=== PATIENT | male | born 1995 | race African-American/Black ===

== ENCOUNTER 2019-12-23 17:46 | Emergency (ER) | payer MEDICAID ==
[~2019-12-23] VITALS: Ht 165.1 cm; Wt 85.0 kg
[2019-12-23 22:03] VITALS: BP 145/98
== END 2019-12-23 22:04 | disposition home or self-care (01) ==
LOC: ER 17:46
DX: M79.671 Pain in right foot (principal)
CPT/HCPCS: 73630; 99283

== ENCOUNTER → 2020-01-05 | Outpatient (CLI) | payer MEDICAID, OTHER | END | disposition home or self-care (01) | LOC: RAD 08:30 | PROVIDERS: ATTEND Family Medicine Adult Medicine | DX: S93.501A Unspecified sprain of right great toe, initial encounter (principal); M19.071 Primary osteoarthritis, right ankle and foot; M20.11 Hallux valgus (acquired), right foot; M65.871 Other synovitis and tenosynovitis, right ankle and foot; X58.XXXA Exposure to other specified factors, initial encounter; Y92.89 Other specified places as the place of occurrence of the external cause; Y93.29 Activity, other involving ice and snow; Y99.8 Other external cause status | CPT/HCPCS: 73721 ==